=== PATIENT | female | born 1985 | race Caucasian/White ===

== ENCOUNTER 2019-11-06 23:30 | Emergency (ER) | payer SELFPAY ==
[~2019-11-06] VITALS: Ht 172.7 cm; Wt 59.0 kg
[2019-11-06 23:50] VITALS: BP_SYST 118
--- NOTE | 2019-11-07 | NUR ---
Patient to ER bed 7 to gown for evaluation. Side rails up
--- NOTE | 2019-11-07 00:50 | NUR ---
Dr. Gallagher bedside for pt eval
[2019-11-07] MEDS ORDERED: NACL 0.9% 1,000 ML IV ONE (01:00)
[2019-11-07] MEDS ORDERED: KETOROLAC TROMETHAMINE 30 MG VIAL IVP ONE (01:00)
[2019-11-07] MEDS ORDERED: ONDANSETRON HCL 4 MG/2 ML VIAL IVP ONE (01:00)
--- NOTE | 2019-11-07 01:00 | NUR ---
Pt BIB family to ED C/O pain to rt back with intermittent pain to epigastric area. Reports 2 days of no BMs. VSS no s/s of acute distress Resting on gurney rails up
[2019-11-07 01:12] LABS: BILIRUBIN,URINE NEGATIVE (NEGATIVE); BLOOD, URINE 1+ (NEGATIVE); CLARITY/URINE CLOUDY (CLEAR); COLOR,URINE YELLOW (YELLOW); GLUCOSE,URINE NEGATIVE (NEGATIVE); KETONES,URINE NEGATIVE (NEGATIVE); LEUKOCYTE ESTERASE ,URINE 3+ (NEGATIVE); NITRITE, URINE NEGATIVE (NEGATIVE); PROTEIN URINE 2+ (NEGATIVE)
[2019-11-07 01:20] LABS: BACTERIA,URINE MODERATE /HPF (None Seen); WBC,URINE >100 /HPF (0-3)
[2019-11-07 01:38] LABS: BASOPHILS % (AUTO) 0.3 % (0.0-2.0); EOSINOPHILS % (AUTO) 0.1 % (0.0-4.0); HEMATOCRIT 36.4 % (36-48); LYMPHOCYTES # (AUTO) 0.6 K/uL (1.0-5.5); LYMPHOCYTES % (AUTO) 5.4 % (20.5-51.5); MEAN CORPUSCULAR HEMOGLOBIN 31 pg (27-31); MEAN CORPUSCULAR HGB CONC 33 % (32-36); MEAN CORPUSCULAR VOLUME 93 fL (79.0-98.0); MONOCYTES # (AUTO) 0.8 K/uL (0.0-1.0); MONOCYTES % (AUTO) 6.4 % (1.7-9.3); NEUTROPHILS # (AUTO) 10.6 K/uL (1.8-7.7); NEUTROPHILS % (AUTO) 87.8 % (40.0-70.0); PLATELET COUNT (AUTO) 248 K/uL (130-430); RED BLOOD CELL COUNT(AUTO) 3.93 MIL/uL (4.2-6.2); RED CELL DISTRIBUTION WIDTH 14.7 % (9.0-15.0); WHITE BLOOD COUNT (AUTO) 12.1 K/uL (4.8-10.8)
--- NOTE | 2019-11-07 01:38 | NUR ---
Pt taken to Radiology for CT study, in stable condition
[2019-11-07 01:48] LABS: CALCIUM 8.5 mg/dL (8.4-11.0); CREATININE 0.99 mg/dL (0.55-1.30); POTASSIUM 3.7 mmol/L (3.5-5.1)
--- NOTE | 2019-11-07 01:50 | NUR ---
Pt back from Radiology well tolerated
[2019-11-07 01:54] LABS: ALBUMIN 3.4 g/dL (3.4-4.8); TOTAL BILIRUBIN 0.4 mg/dL (0.0-1.0)
[2019-11-07] MEDS ORDERED: ONDANSETRON 4 MG ODT TAB PO ONE (02:30)
[2019-11-07] MEDS ORDERED: KETOROLAC TROMETHAMINE 60 MG/2 ML VIAL IM ONE ×2 (02:30→02:46)
[2019-11-07] MEDS ORDERED: ONDANSETRON 4 MG ODT TAB ONE (02:45)
[2019-11-07] MEDS ORDERED: CEPHALEXIN 500 MG CAPSULE PO ONE (03:15)
[2019-11-07 03:30] VITALS: BP_SYST 118
--- NOTE | 2019-11-07 03:30 | NUR ---
Patient given written and verbal discharge instructions and verbalizes understanding. ER MD discussed with patient the results and treatment provided. Patient in stable condition. ID arm band removed. Rx of Keflex, Ibuprofen, and Pyridium given. Patient educated on pain management and to follow up with PMD. Pain Scale 0/10 Opportunity for questions provided and answered. Medication side effect fact sheet provided.
== END 2019-11-07 03:30 | disposition home or self-care (01) ==
LOC: SED 23:30
DX: N39.0 Urinary tract infection, site not specified (principal)
CPT/HCPCS: 36415; 74176; 80053; 81000; 84703; 85025; 87086; 87186; 96372; 99284; J1885 ×2; J2405; Q0162